=== PATIENT | male | born 1990 | race Caucasian/White ===

== ENCOUNTER 2019-05-02 05:57 | Emergency (ER) | payer SELFPAY ==
[~2019-05-02] VITALS: Ht 175.3 cm; Wt 110.0 kg
[2019-05-02] MEDS ORDERED: ONDANSETRON HCL 4MG/2ML INJ IV ONE (06:15)
[2019-05-02] MEDS ORDERED: FOLIC ACID 1 MG, THIAMINE HCL 100 MG, MVI, ADULT NO.1 10 ML in DEXTROSE 5% WATER 1,000 ML IV ONE ×4 (06:15)
[2019-05-02 06:41] LABS: CHLORIDE 109 mEq/L (98-107)
[2019-05-02 06:46] LABS: ETHANOL BLOOD 296 mg/dL
[2019-05-02 06:56] LABS: BASOPHILS % 0.6 % (0.0-2.0); EOSINOPHILS % 1.4 % (0.0-5.0); HEMATOCRIT. 48.4 % (42.0-52.0); HEMOGLOBIN. 16.4 g/dL (14.0-18.0); LYMPHOCYTES % 51.2 % (20.0-50.0); MEAN CORPUSCULAR VOLUME 88.6 fL (80.0-94.0); MEAN PLATELET VOLUME 8.7 fl (7.4-10.4); MONOCYTES % 7.1 % (2.0-8.0); NEUTROPHILS % 39.7 % (40.0-76.0); PLATELET 246 x1000/uL (130-400); RED BLOOD CELL COUNT 5.46 mill/uL (4.7-6.1); RED CELL DISTRIBUTION WIDTH 13.8 % (11.6-14.6)
[2019-05-02 11:30] VITALS: BP 121/75
== END 2019-05-02 11:30 | disposition home or self-care (01) ==
LOC: ER 05:57
DX: G92 Toxic encephalopathy (principal); F10.129 Alcohol abuse with intoxication, unspecified; R41.82 Altered mental status, unspecified; Z98.890 Other specified postprocedural states; Y90.8 Blood alcohol level of 240 mg/100 ml or more
CPT/HCPCS: 36415; 80053; 80307; 80320; 80329; 82962; 85025; 96365; 96375; 99283; J2405; J3411; J3490; J7070; G0480